=== PATIENT | female | born 1990 | race Caucasian/White ===

== ENCOUNTER 2018-07-18 11:22 | Emergency (ER) | payer SELFPAY ==
[~2018-07-18] VITALS: Ht 157.5 cm; Wt 65.8 kg
--- NOTE | 2018-07-18 11:24 | NUR ---
TANJA BROWN, CURRENTLY AWAITING BED
--- NOTE | 2018-07-18 11:26 | NUR ---
PT TAKEN TO BED 9 BY [facility]
[2018-07-18 11:30] VITALS: BP 129/91
--- NOTE | 2018-07-18 11:30 | NUR ---
PT [facility] FROM HOME PRESENTS TO ED WITH C/O LUQ 5/10 ABD PAIN. PER PATIENT THE PAIN STARTED ABOUT AN HOUR AGO. PATIENT DENIES N/V. PATIENT REPORTS OF DIARRHEA THAT STARTED YESTERDAY. VITAL SIGNS WNL. LMP WAS 3 MONTHS AGO. PATIENT STATES SHE ONLY GETS HER PERIOD ONCE A YEAR. BED LOWERED. MADE MD AWARE OF PATIENT'S STATUS
[2018-07-18 12:02] LABS: BASOPHILS % (AUTO) 0.3 % (0.0-2.0); EOSINOPHILS # (AUTO) 0.1 K/uL (0-0.4); HEMATOCRIT 43.2 % (36-48); HEMOGLOBIN 14.6 g/dL (12.0-16.0); LYMPHOCYTES # (AUTO) 1.5 K/uL (2.5-16.5); LYMPHOCYTES % (AUTO) 21.6 % (20.5-51.1); MEAN CORPUSCULAR HEMOGLOBIN 28 pg (27-31); MEAN CORPUSCULAR HGB CONC 34 g/dL (33-37); MEAN CORPUSCULAR VOLUME 82.9 fL (80-94); MONOCYTES # (AUTO) 0.5 K/uL (0.8-1.0); MONOCYTES % (AUTO) 7.8 % (1.7-9.3); NEUTROPHILS # (AUTO) 4.8 K/uL (1.8-7.7); NEUTROPHILS % (AUTO) 69.3 % (42.2-75.2); PLATELET COUNT (AUTO) 171 K/uL (140-450); RED BLOOD CELL COUNT(AUTO) 5.22 MIL/uL (4.20-5.40); RED CELL DISTRIBUTION WIDTH 13.1 % (11.6-13.7); WHITE BLOOD COUNT (AUTO) 6.9 K/uL (4.8-10.8)
[2018-07-18 12:10] LABS: ANION GAP 10.7 (8-16); CREATININE 0.7 mg/dL (0.6-1.3); POTASSIUM 3.7 mmol/L (3.5-5.1)
[2018-07-18 12:16] LABS: ALBUMIN 3.8 g/dL (3.4-5.0); TOTAL BILIRUBIN 0.8 mg/dL (0.0-1.0)
--- NOTE | 2018-07-18 12:17 | NUR ---
Patient being evaluated by physician at bedside.
[2018-07-18] MEDS ORDERED: ONDANSETRON 4 MG/2 ML VIAL IVP ONE (12:20)
[2018-07-18] MEDS ORDERED: MORPHINE SULFATE 4 MG/ML SYR IVP ONE (12:20)
[2018-07-18 12:22] LABS: APPEARANCE,URINE CLEAR (CLEAR); BILIRUBIN,URINE NEGATIVE (NEGATIVE); BLOOD, URINE NEGATIVE (NEGATIVE); COLOR,URINE YELLOW (YELLOW); LEUKOCYTE ESTERASE ,URINE NEGATIVE (NEGATIVE); NITRITE, URINE NEGATIVE (NEGATIVE); UGLUCOSE NEGATIVE (NEGATIVE)
[2018-07-18 12:38] LABS: RBC,URINE 0-5 (RARE) /HPF (0-5)
[2018-07-18 12:39] LABS: WBC,URINE NONE SEEN /HPF (0-5)
--- NOTE | 2018-07-18 12:51 | NUR ---
PT TAKEN TO CT IN [place]
--- NOTE | 2018-07-18 13:02 | NUR ---
PT RETURNED FROM CT
[2018-07-18] MEDS ORDERED: ALUMINUM HYD/MAG/SIMETHICONE 30 ML, DICYCLOMINE HCL LIQUID 20 MG, LIDOCAINE VISCOUS 2% ... PO ONE ×3 (13:40)
[2018-07-18 14:11] VITALS: BP 122/85
--- NOTE | 2018-07-18 14:12 | NUR ---
Patient discharged with v/s stable. Written and verbal after care instructions given and explained. Patient alert, oriented and verbalized understanding of instructions. Ambulatory with steady gait. All questions addressed prior to discharge. ID band removed. Patient advised to follow up with PMD. Rx of MACROBID, ULTRAM, ZOFRAN, RANTIDINE given. Patient educated on indication of medication including possible reaction and side effects. Opportunity to ask questions provided and answered.
== END 2018-07-18 14:12 | disposition home or self-care (01) ==
LOC: MED 11:22
DX: N39.0 Urinary tract infection, site not specified (principal); N83.201 Unspecified ovarian cyst, right side; Z90.49 Acquired absence of other specified parts of digestive tract
CPT/HCPCS: 36415; 74176; 80053; 81001; 81025; 83690; 85025; 96374; 96375; 99284; J2270; J2405